=== PATIENT | male | born 1970 | race Caucasian/White ===

== ENCOUNTER 2016-05-02 17:16 | Observation (INO) | payer MEDICARE, BC ==
[~2016-05-02] VITALS: Ht 180.3 cm; Wt 81.3 kg
[2016-05-02 18:07] LABS: APPEARANCE CLEAR (CLEAR); BILIRUBIN NEGATIVE (NEGATIVE); COLOR STRAW (YELLOW); GLUCOSE 1000 mg/dL (NEGATIVE); KETONE SMALL mg/dL (NEGATIVE); LEUKOCYTE ESTERASE NEGATIVE (NEGATIVE); NITRITE NEGATIVE (NEGATIVE); PROTEIN NEGATIVE (NEGATIVE); SPECIFIC GRAVITY 1.005 (1.005-1.020); UROBILINOGEN NORMAL (NORMAL)
[2016-05-02 18:08] LABS: BASOPHILS 0.1 % (0.0-2.0); EOSINOPHILS 1.7 % (0-7); HEMATOCRIT 45.5 % (42.0-54.0); HEMOGLOBIN 16.1 g/dL (13.5-17.5); IMMATURE GRANULOCYTES 0.1 % (0-5); LYMPHOCYTES 13.8 % (15-50); MCH 30.3 pg (26.0-34.0); MCHC 35.4 g/dL (31.0-37.0); MCV 85.5 fL (80.0-100.0); MEAN PLATELET VOLUME 10.5 fL (7.4-10.4); MONOCYTES 7.4 % (2-11); NEUTROPHILS 76.9 % (40-80); PLATELET COUNT 343 10x3/uL (130-400); RBC 5.32 10x6/uL (4.20-6.10); RDW 11.8 % (11.5-14.5); WBC 8.3 10x3/uL (4.8-10.8)
[2016-05-02 18:11] LABS: KETONE - SERUM SMALL mg/dL (NEGATIVE)
[2016-05-02 18:19] LABS: ALBUMIN 3.1 g/dL (3.4-5.0); ALKALINE PHOSPHATASE 133 U/L (46-116); ALT (SGPT) 28 U/L (10-68); BILIRUBIN - TOTAL 0.47 mg/dL (0.2-1.3); CALCIUM 8.6 mg/dL (8.5-10.1); CARBON DIOXIDE 27.5 mmol/L (21.0-32.0); CHLORIDE - SERUM 87 mmol/L (98-107); CREATININE - SERUM 1.1 mg/dL (0.6-1.3); MAGNESIUM - SERUM 1.7 mg/dL (1.8-2.4); POTASSIUM - SERUM 4.5 mmol/L (3.5-5.1); PROTEIN - SERUM 7.3 g/dL (6.4-8.2); SODIUM 124 mmol/L (136-145); UREA NITROGEN 25 mg/dL (7-18); eGFR NON AFRICAN AMERICAN 76 mL/min (90-120)
[2016-05-02 18:35] LABS: CALC OSMOLALITY 292 mosm/kg (275-300); GLUCOSE 802 mg/dL (74-106)
[2016-05-03] VITALS: BP 159/96
--- NOTE | 2016-05-03 00:10 | NUR ---
[employer] CONSULTANT AT BEDSIDE TO OBTAIN VITALS, CALL LIGHT IN REACH. WILL CONTINUE WITH PLAN OF CARE.
[2016-05-03 04:00] VITALS: BP 149/93
--- NOTE | 2016-05-03 06:12 | NUR ---
PT ORDER FOR HUMULIN NOT VERIFIED BY PHARMACY YET. PT FSBS 362. ADMINISTERED 16 UNITS. VERIFIED BY TYPISTS SUPERVISOR RN.
[2016-05-03] MEDS ORDERED: LEVEMIR100 U/M1 SC (06:32)
[2016-05-03] MEDS ORDERED: LANTUS SOL100 UNIT/1 SC (06:32)
[2016-05-03] MEDS ORDERED: NOVOLOG100 U/M1 (06:33)
--- NOTE | 2016-05-03 07:00 | NUR ---
Pt. was received at the beginning of this shift in bed awake and oriented x 3. Family at bedside. Pt's blood sugar levels are being monitored closely q 4 hours. Vital signs wnl. No signs of any discomfort or distress. Will continue to observe and assist prn with adl's. Call light is in reach.
[2016-05-03 08:00] VITALS: BP 142/85
[2016-05-03 11:01] LABS: BASOPHILS 0.1 % (0.0-2.0); EOSINOPHILS 3.3 % (0-7); HEMATOCRIT 40.2 % (42.0-54.0); HEMOGLOBIN 14.3 g/dL (13.5-17.5); IMMATURE GRANULOCYTES 0.1 % (0-5); MCH 29.9 pg (26.0-34.0); MCHC 35.6 g/dL (31.0-37.0); MCV 84.1 fL (80.0-100.0); MEAN PLATELET VOLUME 9.9 fL (7.4-10.4); MONOCYTES 8.5 % (2-11); PLATELET COUNT 304 10x3/uL (130-400); RBC 4.78 10x6/uL (4.20-6.10); RDW 11.7 % (11.5-14.5)
[2016-05-03 11:11] LABS: CALCIUM 8.1 mg/dL (8.5-10.1); CARBON DIOXIDE 29.9 mmol/L (21.0-32.0); CHLORIDE - SERUM 100 mmol/L (98-107); CREATININE - SERUM 0.9 mg/dL (0.6-1.3); SODIUM 136 mmol/L (136-145); eGFR NON AFRICAN AMERICAN > 90 mL/min (90-120)
[2016-05-03 11:20] LABS: CALC OSMOLALITY 281 mosm/kg (275-300); GLUCOSE 261 mg/dL (74-106); HEMOGLOBIN A1C 13.3 % (4.8-6.0); POTASSIUM - SERUM 3.7 mmol/L (3.5-5.1); UREA NITROGEN 15 mg/dL (7-18)
[2016-05-03 12:00] VITALS: BP 137/96
[2016-05-03 12:41] VITALS: BMI 25.8
[2016-05-03 16:00] VITALS: BP 134/74
--- NOTE | 2016-05-03 17:38 | NUR ---
Pt. has been stable this shift. He continues to be alert and oriented x 3. Blood sugar levels are being monitored q 4 hours. Pt. is on a diabetic diet.
[2016-05-03 17:46] VITALS: Ht 180.3 cm; Wt 81.3 kg
--- NOTE | 2016-05-03 19:30 | NUR ---
RECEIVED REPORT, FAMILY AT BEDSIDE, PT IS A&O, DENIES ANY NEEDS AT THIS TIME, CALL LIGHT IN REACH, BED IS LOW, SRX2, WILL CONTINUE TO MONITOR
[2016-05-03 21:01] VITALS: BP 147/93
--- NOTE | 2016-05-03 23:59 | NUR ---
NO CHANGES NOTED IN ASSESSMENT. NO NEEDS VOICED. CALL LIGHT WITHIN REACH. WILL CONT TO MONITOR.
[2016-05-04 01:01] VITALS: BP 123/70
--- NOTE | 2016-05-04 04:28 | NUR ---
ASSESSMENT COMPLETE, FAMILY AT BEDSIDE, CALL LIGHT IN REACH
[2016-05-04 04:57] VITALS: BP 140/90
[2016-05-04 05:13] LABS: BASOPHILS 0.2 % (0.0-2.0); EOSINOPHILS 4.2 % (0-7); HEMATOCRIT 41.1 % (42.0-54.0); HEMOGLOBIN 14.5 g/dL (13.5-17.5); IMMATURE GRANULOCYTES 0.2 % (0-5); LYMPHOCYTES 29.9 % (15-50); MCHC 35.3 g/dL (31.0-37.0); MCV 85.1 fL (80.0-100.0); MEAN PLATELET VOLUME 9.9 fL (7.4-10.4); MONOCYTES 7.9 % (2-11); NEUTROPHILS 57.6 % (40-80); PLATELET COUNT 315 10x3/uL (130-400); RBC 4.83 10x6/uL (4.20-6.10); RDW 11.6 % (11.5-14.5); WBC 5.7 10x3/uL (4.8-10.8)
[2016-05-04 05:32] LABS: CALC OSMOLALITY 282 mosm/kg (275-300); CALCIUM 8.4 mg/dL (8.5-10.1); CARBON DIOXIDE 30.3 mmol/L (21.0-32.0); CHLORIDE - SERUM 102 mmol/L (98-107); CREATININE - SERUM 0.8 mg/dL (0.6-1.3); POTASSIUM - SERUM 3.4 mmol/L (3.5-5.1); SODIUM 138 mmol/L (136-145); UREA NITROGEN 16 mg/dL (7-18); eGFR NON AFRICAN AMERICAN > 90 mL/min (90-120)
[2016-05-04 05:34] LABS: GLUCOSE 203 mg/dL (74-106)
[2016-05-04 08:06] VITALS: BP 137/79
[2016-05-04 12:00] VITALS: BP 136/87
--- NOTE | 2016-05-04 13:37 | NUR ---
PT ASSESSMENT COMPLETED AND DIABETIC TEACHING COMPLETED PT VERBALIZED UNDERSTANDING DISCHARGE INSTRUCTIONS REVIEWED AND PT AND PT VERBALIZED UNDERSTANDING PT ESCORTED DOWN WITH WHEELCHAIR
== END 2016-05-04 13:38 | disposition home or self-care (01) ==
LOC: D.ER 17:16 → D.M2 21:27 → OBSVTIME 21:27 → D.M2 21:27
PROVIDERS: Physician Assistant; ADMIT Family Medicine
DX: E10.65 Type 1 diabetes mellitus with hyperglycemia (principal); Z79.4 Long term (current) use of insulin; R51 Headache; E87.1 Hypo-osmolality and hyponatremia; E83.42 Hypomagnesemia